=== PATIENT | female | born 1970 | race Caucasian/White ===

== ENCOUNTER 2022-06-10 13:25 | Inpatient (IN) ==
[2022-06-10] MEDS ORDERED: *HR* FentaNYL (PF) 100 MCG/2 ML VIAL IVP ONE (15:01)
[2022-06-10] MEDS ORDERED: *HR* HYDROcodone/Acet 5/325 mg TABLET PO ONE (15:15)
[2022-06-10 15:31] LABS: Eosinophils # 0.1 K/mcL (0.0-0.6); Hematocrit 26.3 % (35.3-44.9); Mean Corpuscular HGB Conc 26.6 g/dL (31.6-35.5); Mean Corpuscular Hemoglobin 19.8 pg (28.0-33.3); Mean Corpuscular Volume 74.5 fL (83.0-100.0); Mean Platelet Volume 10.2 fL (9.4-12.4); Platelet Count 359 K/mcL (140-400); Red Blood Count 3.53 M/mcL (3.82-4.97); Red Cell Distribution Width 19.7 % (11.5-14.5); White Blood Count 10.5 K/mcL (4.3-11.1)
[2022-06-10] MEDS ORDERED: Ondansetron 4 MG/2 ML VIAL IVP ONE (15:35)
[2022-06-10 15:48] LABS: BUN/Creatinine Ratio 22 (6-26); Blood Urea Nitrogen 17 mg/dL (6-20); Carbon Dioxide 23 mEq/L (23-29); Chloride 109 mEq/L (98-107); Glucose 95 mg/dL (70-105); Osmolality,Calculated 289 (280-300); Potassium 3.4 mEq/L (3.5-5.1); Sodium 139 mEq/L (136-145); eGFR For African Americans > 60 (> 60); eGFR For Non-African Americans > 60 (> 60)
[2022-06-10 16:47] LABS: Basophils # 0.1 K/mcL (0.0-0.2); Lymphocytes # 1.8 K/mcL (0.6-4.6); Monocytes # 0.2 K/mcL (0.0-1.3); Neutrophils # 8.2 K/mcL (1.6-8.9)
[2022-06-10 16:49] LABS: Anisocytosis 2+ (Not Present); Hypochromasia Present (Not Present); Platelet Estimate Normal (Normal)
[2022-06-10] MEDS ORDERED: Naloxone 0.4 MG/ML INJ IVP PRN (17:54)
[2022-06-10] MEDS ORDERED: Ondansetron 4 MG/2 ML VIAL IVP PRN (17:54)
[2022-06-10] MEDS ORDERED: 0.9 % Sodium Chloride 250 ML ONE (21:38)
[2022-06-10] MEDS: *HR* HYDROcodone/Acet 5/325 mg TABLET PO PRN (22:47)
[2022-06-11] MEDS: *HR* HYDROcodone/Acet 5/325 mg TABLET PO PRN ×4 (04:59→19:40)
[2022-06-11 07:11] LABS: Hemoglobin 8.1 g/dL (11.5-15.4); Immature Granulocytes % 0.5 % (0-4)
[2022-06-11 07:13] LABS: Basophils % 0.3 %; Eosinophils # 0.2 K/mcL (0.0-0.6); Eosinophils % 2.1 %; Hematocrit 28.6 % (35.3-44.9); Lymphocytes # 1.6 K/mcL (0.6-4.6); Lymphocytes % 15.6 %; Mean Corpuscular HGB Conc 28.3 g/dL (31.6-35.5); Mean Corpuscular Hemoglobin 21.4 pg (28.0-33.3); Mean Corpuscular Volume 75.7 fL (83.0-100.0); Mean Platelet Volume 10.2 fL (9.4-12.4); Monocytes # 0.6 K/mcL (0.0-1.3); Neutrophils # 7.6 K/mcL (1.6-8.9); Nucleated Red Blood Cells 0.2 /100 WBC (0); Platelet Count 297 K/mcL (140-400); Red Blood Count 3.78 M/mcL (3.82-4.97); Red Cell Distribution Width 19.5 % (11.5-14.5); Segmented Neutrophils % 75.5 %; White Blood Count 10.1 K/mcL (4.3-11.1)
[2022-06-11] MEDS ORDERED: *HR* Propofol 200 MG/20 ML VIAL IVP ONE ×3 (07:38→09:16)
[2022-06-11] MEDS ORDERED: Lidocaine -MPF 2% 5 ML VIAL ONE (07:38)
[2022-06-11] MEDS ORDERED: *HR* Succinylcholine 200 MG/10 ML VIAL IVP ONE (07:38)
[2022-06-11] MEDS ORDERED: *HR* FentaNYL (PF) 100 MCG/2 ML VIAL ONE (07:38)
[2022-06-11] MEDS ORDERED: *HR* Midazolam HCl 2 MG/2 ML VIAL ONE (07:38)
[2022-06-11] MEDS ORDERED: Ondansetron 4 MG/2 ML VIAL ONE (07:38)
[2022-06-11 07:43] LABS: Hypochromasia Present (Not Present)
[2022-06-11 07:44] LABS: Anisocytosis 1+ (Not Present); Platelet Estimate Normal (Normal)
[2022-06-11] MEDS ORDERED: Acetaminophen 325 MG TABLET PO PRN ×2 (08:18→11:00)
[2022-06-11] MEDS ORDERED: Ondansetron ODT 4 MG TAB.RAPDIS SL PRN ×2 (08:18→11:00)
[2022-06-11] MEDS ORDERED: *HR* HYDROmorphone PF 0.5 MG/0.5 ML SYRINGE IVP PRN (08:29)
[2022-06-11] MEDS ORDERED: Promethazine 6.25 MG in Water for inj. (sterile) 20 ML IVPB PRN (08:29)
[2022-06-11] MEDS ORDERED: *HR* HYDROMORPHONE 2 MG/ML VIAL ONE (08:53)
[2022-06-11] MEDS ORDERED: CefOXitin 2,000 MG VIAL ONE (08:53)
[2022-06-11] MEDS ORDERED: Loratadine 10 MG TABLET PO SCH (09:00)
[2022-06-11] MEDS ORDERED: Ondansetron 4 MG/2 ML VIAL IVP PRN (11:00)
[2022-06-11] MEDS ORDERED: Naloxone 0.4 MG/ML INJ IVP PRN (11:00)
[2022-06-11] MEDS: Morphine Sulfate 2 MG/ML SYRINGE IVP PRN ×2 (17:51→21:56)
[2022-06-12] MEDS: *HR* HYDROcodone/Acet 5/325 mg TABLET PO PRN ×4 (01:39→21:08)
[2022-06-12 03:38] LABS: Hematocrit 27.7 % (35.3-44.9); Hemoglobin 7.9 g/dL (11.5-15.4); Mean Corpuscular HGB Conc 28.5 g/dL (31.6-35.5); Red Cell Distribution Width 19.9 % (11.5-14.5)
[2022-06-12 03:43] LABS: Basophils % 0.2 %; Eosinophils % 0.1 %; Immature Granulocytes % 0.3 % (0-4); Lymphocytes # 1.5 K/mcL (0.6-4.6); Mean Corpuscular Hemoglobin 21.6 pg (28.0-33.3); Mean Corpuscular Volume 75.7 fL (83.0-100.0); Mean Platelet Volume 10.1 fL (9.4-12.4); Monocytes # 0.8 K/mcL (0.0-1.3); Platelet Count 316 K/mcL (140-400); Red Blood Count 3.66 M/mcL (3.82-4.97); Segmented Neutrophils % 79.4 %; White Blood Count 11.5 K/mcL (4.3-11.1)
[2022-06-12] MEDS ORDERED: polyethylene glycoL 3350 17 GM POWD.PACK PO PRN (03:44)
[2022-06-12] MEDS: Morphine Sulfate 2 MG/ML SYRINGE IVP PRN (03:47)
[2022-06-12 03:59] LABS: BUN/Creatinine Ratio 16 (6-26); Blood Urea Nitrogen 11 mg/dL (6-20); Calcium 8.7 mg/dL (8.6-10.3); Carbon Dioxide 21 mEq/L (23-29); Chloride 107 mEq/L (98-107); Glucose 106 mg/dL (70-105); Osmolality,Calculated 280 (280-300); Phosphorous 2.2 mg/dL (2.7-4.5); Potassium 3.6 mEq/L (3.5-5.1); Sodium 135 mEq/L (136-145); eGFR For African Americans > 60 (> 60); eGFR For Non-African Americans > 60 (> 60)
[2022-06-12 04:00] LABS: Neutrophils # 9.1 K/mcL (1.6-8.9)
[2022-06-12 04:21] LABS: Hypochromasia Present (Not Present); Platelet Estimate Normal (Normal)
[2022-06-12] MEDS ORDERED: Morphine Sulfate 2 MG/ML SYRINGE IVP PRN (07:39)
[2022-06-12] MEDS: Loratadine 10 MG TABLET PO SCH (08:14)
[2022-06-12] MEDS: Psyllium 1 PACKET POWD.PACK PO SCH ×3 (08:16→21:08)
[2022-06-12] MEDS: Lidocaine 5% OINT 35 APPL/35.44 GM TUBE TP PRN ×2 (12:29→21:09)
[2022-06-13] MEDS: *HR* HYDROcodone/Acet 5/325 mg TABLET PO PRN ×3 (01:46→12:18)
[2022-06-13 02:56] LABS: Hemoglobin 7.4 g/dL (11.5-15.4); Red Cell Distribution Width 20.6 % (11.5-14.5)
[2022-06-13 02:57] LABS: Hematocrit 26.3 % (35.3-44.9); Mean Corpuscular HGB Conc 28.1 g/dL (31.6-35.5); Mean Corpuscular Hemoglobin 21.6 pg (28.0-33.3); Mean Corpuscular Volume 76.7 fL (83.0-100.0); Mean Platelet Volume 10.5 fL (9.4-12.4); Platelet Count 313 K/mcL (140-400); Red Blood Count 3.43 M/mcL (3.82-4.97); White Blood Count 8.4 K/mcL (4.3-11.1)
[2022-06-13] MEDS: Lidocaine 5% OINT 35 APPL/35.44 GM TUBE TP PRN (06:50)
[2022-06-13] MEDS: Psyllium 1 PACKET POWD.PACK PO SCH ×2 (08:17→15:00)
[2022-06-13] MEDS: Loratadine 10 MG TABLET PO SCH (08:17)
[2022-06-13 11:46] VITALS: BP 102/64; PULSE 91; TEMP 97.6; O2SAT 96
== END 2022-06-13 15:49 | disposition home or self-care (01) | DRG 226 ==
LOC: 3ANU 13:25 → EMEROOARM 13:25 → SUATTDRO 17:52 → 3ANU 19:34 → SUATTDRO 06-12 08:51
PROVIDERS: ADMIT Internal Medicine; ATTEND Internal Medicine